=== PATIENT | female | born 1940 | race Caucasian/White ===

== ENCOUNTER 2017-09-11 15:11 | Inpatient (IN) | payer MEDICARE ==
[~2017-09-11] VITALS: Ht 180.3 cm; Wt 46.0 kg
[2017-09-11] MEDS ORDERED: OLANZapine **IM** 10 mg inj. IM ONE ×2 (15:25→15:55)
[2017-09-11] MEDS ORDERED: LORazepam 2 mg/ml vial IM ONE (15:25)
[2017-09-11] MEDS ORDERED: normal saline 1000ML IV soln IVB ONE (15:25)
[2017-09-11 17:36] LABS: CLARITY,URINE CLOUDY (Clear); COLOR,URINE YELLOW (Yellow); GLUCOSE, URINE NEGATIVE (Neg); KETONES,URINE TRACE mg/dl (Neg); LEUKOCYTE ESTERASE ,URINE MODERATE (Neg); NITRITES, URINE POSITIVE (Neg); OCCULT BLOOD,URINE LARGE (Neg); PROTEIN,URINE 100 mg/dl (Neg)
[2017-09-11] MEDS ORDERED: LORazepam 2 mg/ml vial IV ONE (17:40)
[2017-09-11 17:42] LABS: UA COLLECTION TYPE STRAIGHT CATH
[2017-09-11 17:44] LABS: WBC,URINE TNTC /HPF (0-4)
[2017-09-11 17:45] LABS: BASOPHILS % (AUTO) 0.4 % (0-1); EOSINOPHILS # (AUTO) 0.1 X10'3 (0-0.9); EOSINOPHILS % (AUTO) 1.9 % (0-6); HEMATOCRIT 36.7 % (35.0-45.0); HEMOGLOBIN 12.4 g/dl (12.0-16.0); LYMPHOCYTES % (AUTO) 26.4 % (21-51); MEAN CORPUSCULAR HGB CONC 33.9 % (33.0-36.5); MEAN CORPUSCULAR VOLUME 85.5 FL (78-98); MEAN PLATELET VOLUME 9.2 FL (7.4-10.4); MONOCYTES # (AUTO) 0.6 X10'3 (0-0.9); MONOCYTES % (AUTO) 7.9 % (2-12); NEUTROPHILS # (AUTO) 4.8 X10'3 (1.8-7.7); NEUTROPHILS % (AUTO) 63.4 % (42-75); PLATELET COUNT 217 X10'3 (140-440); RED BLOOD COUNT 4.29 X10'6 (4.20-5.60); RED CELL DISTRIBUTION WIDTH 14.5 % (11.5-14.5); WHITE BLOOD COUNT 7.6 X10'3 (4.5-11.0)
[2017-09-11 17:47] LABS: URINE AMPHETAMINE SCREEN NEGATIVE (Neg); URINE BARBITUATE SCREEN NEGATIVE (Neg); URINE BENZODIAZEPINES SCREEN POSITIVE (Neg); URINE CANNABINOID SCREEN NEGATIVE (Neg); URINE COCAINE SCREEN NEGATIVE (Neg); URINE METHADONE SCREEN NEGATIVE (Neg); URINE OPIATE SCREEN NEGATIVE (Neg); URINE PHENCYCLIDINE SCREEN NEGATIVE (Neg)
[2017-09-11 17:51] LABS: BACTERIA,URINE 4+ /HPF (Neg); RBC,URINE 20-50 /HPF (0-2); SQUAMOUS EPITHELIAL CELL,UR MODERATE /LPF (FEW)
[2017-09-11 17:52] LABS: WBC CLUMPS,URINE MANY /HPF (NEGATIVE)
[2017-09-11 17:59] LABS: ALANINE AMINOTRANSFERASE 28 U/L (12-78); ALBUMIN 3.6 G/DL (3.4-5.0); ALBUMIN/GLOBULIN RATIO 1.1 (1.1-1.5); ALKALINE PHOSPHATASE 82 IU/L (46-116); ANION GAP 8 (8-16); ASPARTATE AMINO TRANSFERASE 21 U/L (10-37); BILIRUBIN,TOTAL 0.5 MG/DL (0.1-1.0); BLOOD UREA NITROGEN 20 MG/DL (7-18); BUN/CREATININE RATIO 22.2 (6.6-38.0); CALCIUM 9.1 MG/DL (8.5-10.1); CHLORIDE 102 MMOL/L (99-107); GLUCOSE 103 MG/DL (70-104); POTASSIUM 4.1 MMOL/L (3.5-5.1); SODIUM 139 MMOL/L (135-145); TOTAL CARBON DIOXIDE 28.6 MMOL/L (24-32); TOTAL PROTEIN 6.8 G/DL (6.4-8.2); eGFR 61 ML/MIN
[2017-09-11 18:02] LABS: ETHANOL < 0.010 GM/DL (0.0-0.010); TROPONIN I < 0.04 NG/ML (0.0-0.05)
[2017-09-11] MEDS ORDERED: CefTRIAXone 2gm/D5W 50ml 50 ML IV ONE (18:05)
[2017-09-11] MEDS ORDERED: DIAZ5TAB23 (19:16)
[2017-09-11] MEDS ORDERED: CITA20TA16 (19:16)
[2017-09-11] MEDS ORDERED: CIPR250T4 (19:16)
[2017-09-11] MEDS ORDERED: ondansetron/PF 4mg/2ml inj IV PRN (19:30)
[2017-09-11] MEDS ORDERED: mag hydrox/Alum hydrox/simeth 30ml oral suspension PO PRN (19:30)
[2017-09-11] MEDS ORDERED: acetaminophen 325mg tablet PO PRN (19:30)
[2017-09-11] MEDS ORDERED: magnesium hydroxide 30ml (MOM) UD suspension PO PRN (19:30)
[2017-09-11] MEDS ORDERED: MESSAGE TO PHARMACY PO ONE (19:45)
[2017-09-11 20:03] LABS: HEMOGLOBIN A1C 7.1 % (4.5-6.2)
[2017-09-11 20:05] VITALS: BP 141/123
[2017-09-11] MEDS: prazosin 1mg capsule PO SCH (21:01)
[2017-09-11] MEDS: normal saline 1000ml 1,000 ML IV SCH (21:02)
[2017-09-11] MEDS: HYDROcodone/acetaminophen 5mg/325mg tablet PO PRN (21:02)
[2017-09-11] MEDS: LORazepam 2 mg/ml vial IV PRN (21:12)
[2017-09-12] MEDS: normal saline 1000ml 1,000 ML IV SCH ×2 (04:16→15:28)
[2017-09-12] MEDS: LORazepam 2 mg/ml vial IV PRN ×3 (04:16→21:17)
[2017-09-12 07:00] VITALS: BP 128/67
[2017-09-12] MEDS: prazosin 1mg capsule PO SCH ×2 (08:00→20:00)
[2017-09-12] MEDS: CefTRIAXone/D5W-Rocephin 1gm 50 ML IV SCH (08:00)
[2017-09-12] MEDS: enoxaparin 40mg/0.4ml syringe SUBCUT SCH (08:00)
[2017-09-12 08:50] LABS: BASOPHILS % (AUTO) 0.4 % (0-1); EOSINOPHILS % (AUTO) 0.6 % (0-6); HEMATOCRIT 33.3 % (35.0-45.0); HEMOGLOBIN 11.2 g/dl (12.0-16.0); LYMPHOCYTES # (AUTO) 0.8 X10'3 (1.1-4.8); LYMPHOCYTES % (AUTO) 9.4 % (21-51); MEAN CORPUSCULAR HEMOGLOBIN 28.8 PG (27.0-31.0); MEAN CORPUSCULAR HGB CONC 33.5 % (33.0-36.5); MEAN CORPUSCULAR VOLUME 85.8 FL (78-98); MEAN PLATELET VOLUME 9.2 FL (7.4-10.4); MONOCYTES # (AUTO) 0.4 X10'3 (0-0.9); MONOCYTES % (AUTO) 4.6 % (2-12); NEUTROPHILS # (AUTO) 7.2 X10'3 (1.8-7.7); PLATELET COUNT 177 X10'3 (140-440); RED BLOOD COUNT 3.88 X10'6 (4.20-5.60); RED CELL DISTRIBUTION WIDTH 14.4 % (11.5-14.5); WHITE BLOOD COUNT 8.5 X10'3 (4.5-11.0)
[2017-09-12 08:55] LABS: ALANINE AMINOTRANSFERASE 21 U/L (12-78); ALBUMIN 2.8 G/DL (3.4-5.0); ALKALINE PHOSPHATASE 67 IU/L (46-116); ANION GAP 8 (8-16); ASPARTATE AMINO TRANSFERASE 15 U/L (10-37); BILIRUBIN,TOTAL 0.4 MG/DL (0.1-1.0); BLOOD UREA NITROGEN 17 MG/DL (7-18); BUN/CREATININE RATIO 24.6 (6.6-38.0); CALCIUM 8.1 MG/DL (8.5-10.1); CHLORIDE 109 MMOL/L (99-107); CREATININE 0.69 MG/DL (0.40-0.90); GLUCOSE 157 MG/DL (70-104); POTASSIUM 3.9 MMOL/L (3.5-5.1); SODIUM 142 MMOL/L (135-145); TOTAL CARBON DIOXIDE 25.5 MMOL/L (24-32); TOTAL PROTEIN 5.5 G/DL (6.4-8.2); eGFR 82 ML/MIN
[2017-09-12 11:00] VITALS: BP 136/64
[2017-09-12] MEDS ORDERED: METF500T PO (11:53)
[2017-09-12 20:00] VITALS: BP 147/90
[2017-09-12] MEDS: lactobacillus rhamnosus 10,000 MMU CELLS/CAPSULE PO SCH (20:00)
[2017-09-12] MEDS ORDERED: QUEtiapine 25mg tablet PO SCH (21:00)
[2017-09-12 23:30] VITALS: BP 136/75
[2017-09-13] MEDS: normal saline 1000ml 1,000 ML IV SCH ×3 (02:12→14:57)
[2017-09-13 07:00] VITALS: BP 168/75
[2017-09-13 07:25] LABS: BASOPHILS % (AUTO) 0.3 % (0-1); EOSINOPHILS # (AUTO) 0.2 X10'3 (0-0.9); EOSINOPHILS % (AUTO) 2.4 % (0-6); HEMATOCRIT 36.1 % (35.0-45.0); HEMOGLOBIN 12.3 g/dl (12.0-16.0); LYMPHOCYTES # (AUTO) 1.8 X10'3 (1.1-4.8); LYMPHOCYTES % (AUTO) 21.7 % (21-51); MEAN CORPUSCULAR HEMOGLOBIN 29.1 PG (27.0-31.0); MEAN CORPUSCULAR HGB CONC 34.1 % (33.0-36.5); MEAN CORPUSCULAR VOLUME 85.5 FL (78-98); MEAN PLATELET VOLUME 8.9 FL (7.4-10.4); MONOCYTES # (AUTO) 0.6 X10'3 (0-0.9); MONOCYTES % (AUTO) 6.8 % (2-12); NEUTROPHILS # (AUTO) 5.8 X10'3 (1.8-7.7); NEUTROPHILS % (AUTO) 68.8 % (42-75); PLATELET COUNT 197 X10'3 (140-440); RED BLOOD COUNT 4.23 X10'6 (4.20-5.60); WHITE BLOOD COUNT 8.5 X10'3 (4.5-11.0)
[2017-09-13 07:39] LABS: ALANINE AMINOTRANSFERASE 29 U/L (12-78); ALBUMIN 2.9 G/DL (3.4-5.0); ALKALINE PHOSPHATASE 74 IU/L (46-116); ANION GAP 5 (8-16); ASPARTATE AMINO TRANSFERASE 41 U/L (10-37); BILIRUBIN,TOTAL 0.5 MG/DL (0.1-1.0); BLOOD UREA NITROGEN 7 MG/DL (7-18); CALCIUM 8.7 MG/DL (8.5-10.1); CHLORIDE 109 MMOL/L (99-107); GLUCOSE 130 MG/DL (70-104); POTASSIUM 4.3 MMOL/L (3.5-5.1); SODIUM 141 MMOL/L (135-145); TOTAL CARBON DIOXIDE 26.8 MMOL/L (24-32); TOTAL PROTEIN 5.7 G/DL (6.4-8.2); eGFR 81 ML/MIN
[2017-09-13] MEDS: enoxaparin 40mg/0.4ml syringe SUBCUT SCH (08:00)
[2017-09-13] MEDS: prazosin 1mg capsule PO SCH ×3 (08:53→20:28)
[2017-09-13] MEDS: lactobacillus rhamnosus 10,000 MMU CELLS/CAPSULE PO SCH ×3 (08:53→20:14)
[2017-09-13] MEDS: CefTRIAXone/D5W-Rocephin 1gm 50 ML IV SCH (08:53)
[2017-09-13] MEDS: QUEtiapine 25mg tablet PO SCH ×3 (08:53→20:15)
[2017-09-13 11:00] VITALS: BP 173/83
[2017-09-13] MEDS: vancomycin/NS 1 GM ADD-VANTAGE 250 ML IV SCH (11:00)
[2017-09-13] MEDS: LORazepam 2 mg/ml vial IV PRN ×2 (12:20→20:51)
[2017-09-13] MEDS: HYDROcodone/acetaminophen 5mg/325mg tablet PO PRN (15:57)
[2017-09-13 18:00] VITALS: BP 144/101
[2017-09-14] MEDS: normal saline 1000ml 1,000 ML IV SCH ×2 (00:20→17:28)
[2017-09-14 00:51] VITALS: BP 144/87
[2017-09-14 08:00] VITALS: BP 169/91
[2017-09-14 08:02] LABS: BASOPHILS % (AUTO) 0.4 % (0-1); EOSINOPHILS # (AUTO) 0.2 X10'3 (0-0.9); EOSINOPHILS % (AUTO) 1.9 % (0-6); HEMATOCRIT 36.6 % (35.0-45.0); HEMOGLOBIN 12.4 g/dl (12.0-16.0); LYMPHOCYTES # (AUTO) 1.7 X10'3 (1.1-4.8); LYMPHOCYTES % (AUTO) 18.8 % (21-51); MEAN CORPUSCULAR HEMOGLOBIN 28.9 PG (27.0-31.0); MEAN CORPUSCULAR HGB CONC 33.8 % (33.0-36.5); MEAN CORPUSCULAR VOLUME 85.4 FL (78-98); MEAN PLATELET VOLUME 9.6 FL (7.4-10.4); MONOCYTES # (AUTO) 0.5 X10'3 (0-0.9); NEUTROPHILS # (AUTO) 6.5 X10'3 (1.8-7.7); NEUTROPHILS % (AUTO) 72.9 % (42-75); PLATELET COUNT 196 X10'3 (140-440); RED BLOOD COUNT 4.28 X10'6 (4.20-5.60); RED CELL DISTRIBUTION WIDTH 14.3 % (11.5-14.5); WHITE BLOOD COUNT 8.9 X10'3 (4.5-11.0)
[2017-09-14 08:22] LABS: ALANINE AMINOTRANSFERASE 25 U/L (12-78); ALBUMIN 2.9 G/DL (3.4-5.0); ALBUMIN/GLOBULIN RATIO 0.9 (1.1-1.5); ALKALINE PHOSPHATASE 76 IU/L (46-116); ANION GAP 11 (8-16); ASPARTATE AMINO TRANSFERASE 33 U/L (10-37); BILIRUBIN,TOTAL 0.6 MG/DL (0.1-1.0); BLOOD UREA NITROGEN 5 MG/DL (7-18); BUN/CREATININE RATIO 6.8 (6.6-38.0); CALCIUM 8.5 MG/DL (8.5-10.1); CHLORIDE 107 MMOL/L (99-107); CREATININE 0.73 MG/DL (0.40-0.90); GLUCOSE 109 MG/DL (70-104); POTASSIUM 3.3 MMOL/L (3.5-5.1); SODIUM 142 MMOL/L (135-145); TOTAL CARBON DIOXIDE 24.5 MMOL/L (24-32); eGFR 77 ML/MIN
[2017-09-14] MEDS: QUEtiapine 25mg tablet PO SCH ×2 (09:35→19:07)
[2017-09-14] MEDS: prazosin 1mg capsule PO SCH ×2 (09:35→19:07)
[2017-09-14] MEDS: vancomycin/NS 1 GM ADD-VANTAGE 250 ML IV SCH (09:35)
[2017-09-14] MEDS: lactobacillus rhamnosus 10,000 MMU CELLS/CAPSULE PO SCH ×2 (09:35→19:07)
[2017-09-14] MEDS: enoxaparin 40mg/0.4ml syringe SUBCUT SCH (09:38)
[2017-09-14 11:00] VITALS: BP 131/77
[2017-09-14 18:00] VITALS: BP 147/78
[2017-09-14] MEDS ORDERED: normal saline 500ml IV soln 500 ML IV ONE (19:55)
[2017-09-14] MEDS: LORazepam 2 mg/ml vial IV PRN (20:47)
[2017-09-14] MEDS: potassium Cl 20mEq in NS 1,000 ML IV SCH (22:24)
[2017-09-14] MEDS: HYDROcodone/acetaminophen 5mg/325mg tablet PO PRN (22:57)
[2017-09-15] VITALS: BP 165/73
[2017-09-15] MEDS: normal saline 1000ml 1,000 ML IV SCH ×2 (03:28→13:28)
[2017-09-15] MEDS: potassium Cl 20mEq in NS 1,000 ML IV SCH ×2 (05:55→15:55)
[2017-09-15 08:00] VITALS: BP 132/64
[2017-09-15] MEDS: QUEtiapine 25mg tablet PO SCH ×2 (08:38→21:01)
[2017-09-15] MEDS: prazosin 1mg capsule PO SCH ×2 (08:38→21:01)
[2017-09-15] MEDS: lactobacillus rhamnosus 10,000 MMU CELLS/CAPSULE PO SCH ×2 (08:38→21:01)
[2017-09-15] MEDS: enoxaparin 40mg/0.4ml syringe SUBCUT SCH ×2 (08:39→09:07)
[2017-09-15] MEDS: vancomycin/NS 1 GM ADD-VANTAGE 250 ML IV SCH (10:00)
[2017-09-15 10:11] LABS: BASOPHILS % (AUTO) 0.4 % (0-1); EOSINOPHILS # (AUTO) 0.1 X10'3 (0-0.9); EOSINOPHILS % (AUTO) 1.7 % (0-6); HEMOGLOBIN 11.9 g/dl (12.0-16.0); LYMPHOCYTES % (AUTO) 12.3 % (21-51); MEAN CORPUSCULAR HEMOGLOBIN 29.3 PG (27.0-31.0); MEAN CORPUSCULAR HGB CONC 33.9 % (33.0-36.5); MEAN CORPUSCULAR VOLUME 86.6 FL (78-98); MEAN PLATELET VOLUME 9.7 FL (7.4-10.4); MONOCYTES # (AUTO) 0.6 X10'3 (0-0.9); MONOCYTES % (AUTO) 7.3 % (2-12); NEUTROPHILS # (AUTO) 6.5 X10'3 (1.8-7.7); NEUTROPHILS % (AUTO) 78.3 % (42-75); PLATELET COUNT 201 X10'3 (140-440); RED BLOOD COUNT 4.05 X10'6 (4.20-5.60); RED CELL DISTRIBUTION WIDTH 13.1 % (11.5-14.5); WHITE BLOOD COUNT 8.2 X10'3 (4.5-11.0)
[2017-09-15] MEDS ORDERED: LORazepam 2 mg/ml vial IM ONE ×2 (10:40→13:40)
[2017-09-15] MEDS ORDERED: magnesium/D5W IVPB 100 ML IV PRN (10:40)
[2017-09-15] MEDS ORDERED: magnesium 4gm in 100ml NS 100 ML IV PRN (10:40)
[2017-09-15] MEDS ORDERED: potassium Cl 40MEQ/NS 500ml 500 ML IV PRN (10:40)
[2017-09-15] MEDS ORDERED: potassium Cl 20 mEq SR tablet PO PRN ×2 (10:40)
[2017-09-15] MEDS ORDERED: magnesium Cl slow-release 64mg tablet PO PRN (10:40)
[2017-09-15 11:00] VITALS: BP 120/72
[2017-09-15] MEDS ORDERED: haloperidol lactate 5mg/ml inj IM ONE (11:50)
[2017-09-15] MEDS: potassium Cl 40MEQ/NS 500ml 500 ML IV PRN (17:09)
[2017-09-15 18:00] VITALS: BP 164/80
[2017-09-16] MEDS: potassium Cl 20mEq in NS 1,000 ML IV SCH ×3 (01:55→17:39)
[2017-09-16] MEDS: normal saline 1000ml 1,000 ML IV SCH ×3 (02:42→19:28)
[2017-09-16 06:07] LABS: BASOPHILS % (AUTO) 0.4 % (0-1); EOSINOPHILS # (AUTO) 0.2 X10'3 (0-0.9); EOSINOPHILS % (AUTO) 2.5 % (0-6); HEMATOCRIT 33.2 % (35.0-45.0); HEMOGLOBIN 11.3 g/dl (12.0-16.0); LYMPHOCYTES # (AUTO) 1.4 X10'3 (1.1-4.8); LYMPHOCYTES % (AUTO) 18.9 % (21-51); MEAN CORPUSCULAR HEMOGLOBIN 29.1 PG (27.0-31.0); MEAN CORPUSCULAR VOLUME 85.4 FL (78-98); MEAN PLATELET VOLUME 8.9 FL (7.4-10.4); MONOCYTES # (AUTO) 0.6 X10'3 (0-0.9); MONOCYTES % (AUTO) 8.4 % (2-12); NEUTROPHILS # (AUTO) 5.3 X10'3 (1.8-7.7); NEUTROPHILS % (AUTO) 69.8 % (42-75); PLATELET COUNT 208 X10'3 (140-440); RED BLOOD COUNT 3.89 X10'6 (4.20-5.60); RED CELL DISTRIBUTION WIDTH 14.5 % (11.5-14.5); WHITE BLOOD COUNT 7.6 X10'3 (4.5-11.0)
[2017-09-16 08:00] VITALS: BP 144/71
[2017-09-16] MEDS: lactobacillus rhamnosus 10,000 MMU CELLS/CAPSULE PO SCH ×2 (08:15→20:33)
[2017-09-16] MEDS: HYDROcodone/acetaminophen 5mg/325mg tablet PO PRN (08:16)
[2017-09-16] MEDS: enoxaparin 40mg/0.4ml syringe SUBCUT SCH (08:16)
[2017-09-16] MEDS: QUEtiapine 25mg tablet PO SCH ×2 (08:16→20:33)
[2017-09-16] MEDS: prazosin 1mg capsule PO SCH ×2 (08:16→20:33)
[2017-09-16] MEDS ORDERED: VANCOMYCIN LEVEL IV ONE (09:30)
[2017-09-16] MEDS: vancomycin/NS 1 GM ADD-VANTAGE 250 ML IV SCH (10:21)
[2017-09-16 11:00] VITALS: BP 142/67
[2017-09-16] MEDS: LORazepam 2 mg/ml vial IV PRN (17:01)
[2017-09-16] MEDS: potassium Cl 40MEQ/NS 500ml 500 ML IV PRN (17:09)
[2017-09-16 19:43] LABS: MAGNESIUM 1.4 MG/DL (1.5-2.4); PHOSPHORUS 3.2 MG/DL (2.3-4.5)
[2017-09-16 20:00] VITALS: BP 156/78
[2017-09-17] VITALS: BP 151/60
[2017-09-17] MEDS: normal saline 1000ml 1,000 ML IV SCH ×2 (05:28→15:28)
[2017-09-17] MEDS: potassium Cl 20mEq in NS 1,000 ML IV SCH ×2 (05:43→17:55)
[2017-09-17 07:00] VITALS: BP 127/77
[2017-09-17 07:22] LABS: MAGNESIUM 1.3 MG/DL (1.5-2.4); POTASSIUM 4.3 MMOL/L (3.5-5.1)
[2017-09-17] MEDS: prazosin 1mg capsule PO SCH ×2 (08:52→19:48)
[2017-09-17] MEDS: lactobacillus rhamnosus 10,000 MMU CELLS/CAPSULE PO SCH ×2 (08:52→19:48)
[2017-09-17] MEDS: QUEtiapine 25mg tablet PO SCH ×2 (08:52→19:48)
[2017-09-17] MEDS: enoxaparin 40mg/0.4ml syringe SUBCUT SCH (08:53)
[2017-09-17 11:00] VITALS: BP 134/53
[2017-09-17 19:15] VITALS: BP 157/75
[2017-09-17] MEDS: HYDROcodone/acetaminophen 5mg/325mg tablet PO PRN (23:42)
[2017-09-18] VITALS: BP 165/73
[2017-09-18 07:06] VITALS: BP 140/75
[2017-09-18] MEDS: lactobacillus rhamnosus 10,000 MMU CELLS/CAPSULE PO SCH ×2 (07:16→19:29)
[2017-09-18] MEDS: QUEtiapine 25mg tablet PO SCH ×2 (07:16→19:29)
[2017-09-18] MEDS: prazosin 1mg capsule PO SCH ×2 (07:16→19:29)
[2017-09-18] MEDS: enoxaparin 40mg/0.4ml syringe SUBCUT SCH (07:17)
[2017-09-18 07:31] LABS: MAGNESIUM 2.2 MG/DL (1.5-2.4)
[2017-09-18 11:53] VITALS: BP 143/96
[2017-09-18] MEDS: LORazepam 2 mg/ml vial IV PRN (13:06)
[2017-09-18 18:04] LABS: BASOPHILS % (AUTO) 0.3 % (0-1); EOSINOPHILS # (AUTO) 0.2 X10'3 (0-0.9); EOSINOPHILS % (AUTO) 1.9 % (0-6); HEMATOCRIT 34.3 % (35.0-45.0); HEMOGLOBIN 11.6 g/dl (12.0-16.0); LYMPHOCYTES # (AUTO) 1.3 X10'3 (1.1-4.8); LYMPHOCYTES % (AUTO) 14.9 % (21-51); MEAN CORPUSCULAR HEMOGLOBIN 28.8 PG (27.0-31.0); MEAN CORPUSCULAR HGB CONC 33.7 % (33.0-36.5); MEAN CORPUSCULAR VOLUME 85.4 FL (78-98); MEAN PLATELET VOLUME 8.3 FL (7.4-10.4); MONOCYTES # (AUTO) 0.7 X10'3 (0-0.9); MONOCYTES % (AUTO) 8.6 % (2-12); NEUTROPHILS # (AUTO) 6.4 X10'3 (1.8-7.7); NEUTROPHILS % (AUTO) 74.3 % (42-75); PLATELET COUNT 244 X10'3 (140-440); RED BLOOD COUNT 4.01 X10'6 (4.20-5.60); WHITE BLOOD COUNT 8.6 X10'3 (4.5-11.0)
[2017-09-18 20:00] VITALS: BP 153/86
[2017-09-19] VITALS: BP 147/71
[2017-09-19] MEDS: enoxaparin 40mg/0.4ml syringe SUBCUT SCH (07:31)
[2017-09-19] MEDS: QUEtiapine 25mg tablet PO SCH (07:31)
[2017-09-19] MEDS: lactobacillus rhamnosus 10,000 MMU CELLS/CAPSULE PO SCH (07:31)
[2017-09-19] MEDS: prazosin 1mg capsule PO SCH (07:31)
[2017-09-19 08:00] VITALS: BP 135/59
[2017-09-19 08:37] LABS: ALANINE AMINOTRANSFERASE 32 U/L (12-78); ALBUMIN 2.7 G/DL (3.4-5.0); ALBUMIN/GLOBULIN RATIO 0.8 (1.1-1.5); ALKALINE PHOSPHATASE 78 IU/L (46-116); ANION GAP 8 (8-16); ASPARTATE AMINO TRANSFERASE 25 U/L (10-37); BILIRUBIN,TOTAL 0.5 MG/DL (0.1-1.0); BLOOD UREA NITROGEN 10 MG/DL (7-18); BUN/CREATININE RATIO 11.9 (6.6-38.0); CHLORIDE 102 MMOL/L (99-107); CREATININE 0.84 MG/DL (0.40-0.90); GLUCOSE 136 MG/DL (70-104); MAGNESIUM 1.8 MG/DL (1.5-2.4); POTASSIUM 4.2 MMOL/L (3.5-5.1); SODIUM 137 MMOL/L (135-145); TOTAL CARBON DIOXIDE 27.4 MMOL/L (24-32); TOTAL PROTEIN 6.1 G/DL (6.4-8.2); eGFR 66 ML/MIN
[2017-09-19] MEDS ORDERED: VANCOMYCIN LEVEL IV ONE (10:30)
[2017-09-19 12:07] VITALS: BP 100/53
[2017-09-19] MEDS ORDERED: nitrofuran/nitrofuran macrocrysal 100 MG capsule PO SCH (17:30)
[2017-09-20] MEDS ORDERED: VANCOMYCIN LEVEL IV ONE (09:30)
== END 2017-09-19 13:35 | disposition home health service (06) | DRG 689 ==
LOC: ER 15:12 → ED HOLD 19:28 → EDBEDREQTM 19:48 → SUR 3N 20:22
PROVIDERS: ADMIT Internal Medicine; ATTEND Family Medicine
DX: N39.0 Urinary tract infection, site not specified (principal); G93.40 Encephalopathy, unspecified; F05 Delirium due to known physiological condition; F02.81 Dementia in other diseases classified elsewhere, unspecified severity, with behavioral disturbance; G30.1 Alzheimer's disease with late onset; B96.89 Other specified bacterial agents as the cause of diseases classified elsewhere; E11.9 Type 2 diabetes mellitus without complications; E83.42 Hypomagnesemia; E87.6 Hypokalemia; I10 Essential (primary) hypertension; Z88.2 Allergy status to sulfonamides
CPT/HCPCS: 36415; 70450; 80053; 80202; 80305; 80320; 81001; 82948; 83036; 83605; 83690; 83735; 83880; 84100; 84132; 84443; 84484; 85025; 87040; 87070; 87077; 87088; 87186; 93005; 96365; 96372; 96375; 97110; 97116; 97161; 97530; 99285; A4353; J0696; J1630; J1650; J2060; J3370; J3475; J3480; J7030

== ENCOUNTER 2017-12-22 17:11 | Emergency (ER) | payer MEDICARE ==
[~2017-12-22] VITALS: Ht 149.9 cm; Wt 40.6 kg
[~2017-12-22 17:11] MED LIST: CITA20TA16; DIAZ5TAB23; METF500T PO
[2017-12-22] MEDS ORDERED: LIDOcaine 1%/PF 5ML 10 MG/ML VIAL IJ ONE (19:20)
[2017-12-22] MEDS ORDERED: LIDOcaine 1.5% w/epinephrine 1:200,000 5ml ampul IJ ONE (21:15)
[2017-12-22 21:46] VITALS: BP 138/76
== END 2017-12-22 21:48 | disposition home or self-care (01) ==
LOC: ER 17:12
DX: S09.90XA Unspecified injury of head, initial encounter (principal); S01.01XA Laceration without foreign body of scalp, initial encounter; F03.90 Unspecified dementia, unspecified severity, without behavioral disturbance, psychotic disturbance, mood disturbance, and anxiety; Z88.2 Allergy status to sulfonamides; Z79.84 Long term (current) use of oral hypoglycemic drugs; Z79.899 Other long term (current) drug therapy; W18.39XA Other fall on same level, initial encounter; Y93.89 Activity, other specified; Y92.017 Garden or yard in single-family (private) house as the place of occurrence of the external cause; Y99.8 Other external cause status
CPT/HCPCS: 12001; 99284; A6449; J2001; J3490

== ENCOUNTER 2018-01-28 19:31 | Emergency (ER) | payer MEDICARE ==
[~2018-01-28] VITALS: Ht 149.9 cm; Wt 32.6 kg
[2018-01-28 19:33] VITALS: BP 146/76
== END 2018-01-28 21:20 | disposition home or self-care (01) ==
LOC: ER 19:31
DX: S00.03XA Contusion of scalp, initial encounter (principal); Z79.899 Other long term (current) drug therapy; W18.39XA Other fall on same level, initial encounter; Y93.89 Activity, other specified; Y92.89 Other specified places as the place of occurrence of the external cause; Y99.8 Other external cause status
CPT/HCPCS: 70450; 72125; 99284